=== PATIENT | female | born 2000 | race African-American/Black ===

== ENCOUNTER 2021-06-16 21:25 | Emergency (ER) | payer MEDICAID ==
[~2021-06-16] VITALS: Ht 167.6 cm; Wt 49.4 kg
[2021-06-16] MEDS ORDERED: SODIUM CHLORIDE 0.9% 1,000 ML IV ONE (21:45)
[2021-06-16] MEDS ORDERED: PROCHLORPERAZINE EDISYLATE 5 MG/ML 2ML VIAL IV ONE (21:45)
[2021-06-16] MEDS ORDERED: PANTOPRAZOLE 40 MG/10 ML VIAL INJ IV ONE (21:45)
[2021-06-16 22:16] LABS: Basophils # (auto) 0 10 ^3/uL (0-0.2); Basophils % (auto) 0.3 % (0.0-2.0); Eosinophils # (auto) 0 10 ^3/uL (0-0.8); Hematocrit 40.5 % (36.0-46.0); Hemoglobin 14.1 g/dL (12.2-16.2); Lymphocytes # (auto) 0.7 10 ^3/uL (0.4-5.4); Lymphocytes % (auto) 12.4 % (10.0-50.0); Mean Corpuscular Hgb Conc. 34.8 g/dL (32.0-36.0); Mean Corpuscular Volume 97.8 fL (80.0-100.0); Monocytes # (auto) 0.2 10 ^3/uL (0-1.3); Monocytes % (auto) 3.6 % (0.0-12.0); Neutrophils # (auto) 4.5 10 ^3/uL (1.6-8.6); Neutrophils % (auto) 83.7 % (37.0-80.0); Red Blood Cells 4.14 10^6/uL (4.0-5.20); Red Cell Distribution Width 15.7 % (11.8-14.3); White Blood Cell 5.4 10^3/uL (4.4-10.8)
[2021-06-16 22:29] LABS: Calcium 9.7 mg/dL (8.5-10.1); Potassium 3.4 mmol/L (3.5-5.1)
[2021-06-16 22:30] VITALS: BP 112/80
[2021-06-16 22:33] LABS: BUN/Creatinine Ratio 26.8; Bilirubin, Total 0.7 mg/dL (0.2-1.0); Total Protein 8.8 g/dL (6.4-8.2)
== END 2021-06-17 00:45 | disposition home or self-care (01) ==
LOC: ER 21:26
DX: R11.2 Nausea with vomiting, unspecified (principal); R10.33 Periumbilical pain; J45.909 Unspecified asthma, uncomplicated
CPT/HCPCS: 36415; 80053; 82150; 83690; 84702; 85025; 96361; 96374; 96375; 99284; C9113; J0780; J7030